=== PATIENT | female | born 1980 | race Hispanic/Latino ===

== ENCOUNTER 2017-10-22 03:09 | Emergency (ER) | payer OTHER, SELFPAY ==
[~2017-10-22 03:09] MED LIST: FURO40TA7 PO; INSREG SQ; INSU100V3 SQ; LEVO500T2 PO; LISI-613 PO; METF10004 PO; POTA-9 PO
[2017-10-22] MEDS ORDERED: SODIUM CHLORIDE 0.9% 1000ML 1,000 ML IV ONE (04:53)
[2017-10-22 04:57] LABS: BASOPHILS % (AUTO) 0.6 % (0.0-5.0); EOSINOPHILS % (AUTO) 1.7 % (0.0-8.0); HEMATOCRIT 31.8 % (36-48); LYMPHOCYTES % (AUTO) 20.8 % (21.0-51.0); MEAN CORPUSCULAR HEMOGLOBIN 29.9 pg (27.0-33.0); MEAN CORPUSCULAR HGB CONC 34.8 g/dL (32.0-36.0); MONOCYTES % (AUTO) 5.7 % (3.0-13.0); NEUTROPHILS % (AUTO) 71.2 % (40.0-77.0); PLATELET COUNT (AUTO) 291 K/uL (130-400); RED CELL DISTRIBUTION WIDTH 14.7 % (11.0-15.5); WHITE BLOOD COUNT (AUTO) 8.8 K/uL (4.8-10.8)
[2017-10-22 04:57] LABS: BILIRUBIN,URINE NEGATIVE (NEGATIVE); COLOR,URINE YELLOW (YELLOW); GLUCOSE, URINE (UA) 500 mg/dL (NEGATIVE); KETONES,URINE NEGATIVE (NEGATIVE); LEUKOCYTE ESTERASE ,URINE SMALL (NEGATIVE); NITRATE,URINE NEGATIVE (NEGATIVE); OCCULT BLOOD,URINE MODERATE (NEGATIVE); PH,URINE 6.5 (5.0-8.0); PROTEIN,URINE >=300 (NEGATIVE); UROBILINOGEN,URINE 0.2 mg/dL (0.2-1.0)
[2017-10-22 05:03] LABS: APPEARANCE,URINE HAZY (CLEAR)
[2017-10-22 05:04] LABS: CREATININE 1.2 mg/dL (0.5-1.5); POTASSIUM 4.1 mmol/L (3.5-5.1)
[2017-10-22 05:05] LABS: BACTERIA,URINE Few /HPF (None Seen)
[2017-10-22 05:09] LABS: ALBUMIN 2.3 g/dL (3.5-5.0); BILIRUBIN,TOTAL 0.1 mg/dL (0.2-1.0); TOTAL PROTEIN, SERUM 6.6 g/dL (6.0-8.3)
[2017-10-22] MEDS ORDERED: LABETALOL HCL 5 MG/ML 20ML VIAL IV ONE (06:05)
[2017-10-22] MEDS ORDERED: INSULIN HUMULIN R 100 UNIT/ML 3ML ONE (06:37)
== END 2017-10-22 06:47 | disposition home or self-care (01) ==
LOC: EDH 03:09
DX: E11.65 Type 2 diabetes mellitus with hyperglycemia (principal); R20.2 Paresthesia of skin; E78.5 Hyperlipidemia, unspecified; I11.0 Hypertensive heart disease with heart failure; I50.9 Heart failure, unspecified; Z79.4 Long term (current) use of insulin; Z98.890 Other specified postprocedural states
CPT/HCPCS: 36415; 70450; 80053; 81001; 81025; 82550; 82948 ×2; 84484; 85025; 93005; 96361; 96374; 96375; 99285; J1815; J3490; J7030

== ENCOUNTER 2018-01-25 15:56 | Emergency (ER) | payer OTHER, SELFPAY ==
[2018-01-25 16:44] LABS: BASOPHILS % (AUTO) 0.7 % (0.0-5.0); EOSINOPHILS % (AUTO) 1.4 % (0.0-8.0); HEMATOCRIT 24.3 % (36-48); LYMPHOCYTES % (AUTO) 25.1 % (21.0-51.0); MEAN CORPUSCULAR HEMOGLOBIN 29.3 pg (27.0-33.0); MEAN CORPUSCULAR HGB CONC 34.2 g/dL (32.0-36.0); MEAN CORPUSCULAR VOLUME 85.8 fL (79-99); MONOCYTES % (AUTO) 6.4 % (3.0-13.0); NEUTROPHILS % (AUTO) 66.4 % (40.0-77.0); PLATELET COUNT (AUTO) 218 K/uL (130-400); RED BLOOD CELL COUNT(AUTO) 2.83 MIL/uL (4.00-5.50); RED CELL DISTRIBUTION WIDTH 14.1 % (11.0-15.5); WHITE BLOOD COUNT (AUTO) 3.3 K/uL (4.8-10.8)
[2018-01-25 16:53] LABS: CREATININE 1.6 mg/dL (0.5-1.5); POTASSIUM 3.8 mmol/L (3.5-5.1)
[2018-01-25 16:54] LABS: INR 0.86 (0.85-1.15); PARTIAL THROMBOPLASTIN TIME 28.8 SEC (26.3-35.5); PROTHROMBIN TIME 9.1 SEC (9.6-11.6)
[2018-01-25 17:05] LABS: B-TYPE NATRIURETIC PEPTIDE 213 pg/mL (0-100)
[2018-01-25 17:07] LABS: ALBUMIN 2.1 g/dL (3.5-5.0); BILIRUBIN,TOTAL 0.2 mg/dL (0.2-1.0); CREATINE KINASE MB 1.2 ng/mL (0.5-3.6); TOTAL PROTEIN, SERUM 6.4 g/dL (6.0-8.3)
== END 2018-01-25 19:24 | disposition home or self-care (01) ==
LOC: EDH 15:56
DX: R55 Syncope and collapse (principal); F41.1 Generalized anxiety disorder; I11.0 Hypertensive heart disease with heart failure; I50.9 Heart failure, unspecified; E78.5 Hyperlipidemia, unspecified; Z98.890 Other specified postprocedural states
CPT/HCPCS: 36415; 71045; 80053; 82550; 82553; 83880; 84484; 85025; 85610; 85730; 93005; 94761

== ENCOUNTER 2018-06-17 10:09 | Emergency (ER) | payer SELFPAY ==
[~2018-06-17 10:09] MED LIST changes: +METF-446 PO; -METF10004 PO
[2018-06-17 11:05] LABS: APPEARANCE,URINE Cloudy (CLEAR); BILIRUBIN,URINE Negative (NEGATIVE); COLOR,URINE Yellow (YELLOW); GLUCOSE, URINE (UA) 250 mg/dL (NEGATIVE); KETONES,URINE Negative (NEGATIVE); LEUKOCYTE ESTERASE ,URINE Negative (NEGATIVE); NITRATE,URINE Negative (NEGATIVE); OCCULT BLOOD,URINE Moderate (NEGATIVE); PH,URINE 5.5 (5.0-8.0); PROTEIN,URINE >=1000 (NEGATIVE); UROBILINOGEN,URINE 0.2 mg/dL (0.2-1.0)
[2018-06-17 11:10] LABS: BASOPHILS % (AUTO) 0.4 % (0.0-5.0); EOSINOPHILS % (AUTO) 0.2 % (0.0-8.0); HEMATOCRIT 28.2 % (36-48); LYMPHOCYTES % (AUTO) 17.2 % (21.0-51.0); MEAN CORPUSCULAR HEMOGLOBIN 29.6 pg (27.0-33.0); MEAN CORPUSCULAR VOLUME 87.2 fL (79-99); NEUTROPHILS % (AUTO) 76.2 % (40.0-77.0); PLATELET COUNT (AUTO) 220 K/uL (130-400); RED BLOOD CELL COUNT(AUTO) 3.24 MIL/uL (4.00-5.50); RED CELL DISTRIBUTION WIDTH 14.2 % (11.0-15.5); WHITE BLOOD COUNT (AUTO) 3.7 K/uL (4.8-10.8)
[2018-06-17 11:15] LABS: HCG,QUAL RESULT NEGATIVE (NEGATIVE)
[2018-06-17 11:16] LABS: RAPID GROUP A STREP NEGATIVE (NEGATIVE)
[2018-06-17 11:16] LABS: BACTERIA,URINE Rare /HPF (None Seen); RBC,URINE 0-1 /HPF (0-1); WBC,URINE 0-1 /HPF (0-1)
[2018-06-17 11:17] LABS: MUCUS,URINE Rare LPF (None Seen); SQUAMOUS EPITHELIAL CELL,UR Few /HPF (0-2)
[2018-06-17 11:18] LABS: FINE GRANULAR CASTS,URINE 0-2 /LPF (None Seen)
[2018-06-17 11:19] LABS: CREATININE 2.3 mg/dL (0.5-1.5); POTASSIUM 3.8 mmol/L (3.5-5.1)
[2018-06-17 11:24] LABS: ALBUMIN 2.4 g/dL (3.5-5.0); BILIRUBIN,TOTAL 0.2 mg/dL (0.2-1.0)
[2018-06-17] MEDS ORDERED: ACETAMINOPHEN 325 MG TAB ONE (12:06)
== END 2018-06-17 12:28 | disposition home or self-care (01) ==
LOC: EDH 10:09
DX: J11.1 Influenza due to unidentified influenza virus with other respiratory manifestations (principal); E86.0 Dehydration; N28.9 Disorder of kidney and ureter, unspecified; E11.9 Type 2 diabetes mellitus without complications; E78.5 Hyperlipidemia, unspecified; I11.0 Hypertensive heart disease with heart failure; I50.9 Heart failure, unspecified
CPT/HCPCS: 36415; 71046; 80053; 81001; 81025; 83880; 85025; 85378; 87804; 87880

== ENCOUNTER → 2018-11-15 | Outpatient (CLI) | payer MEDICAID | END | disposition home or self-care (01) | LOC: RAH 15:20 | PROVIDERS: ATTEND Family Medicine | DX: N83.201 Unspecified ovarian cyst, right side (principal) | CPT/HCPCS: 74176 ==

== ENCOUNTER 2018-12-12 22:37 | Inpatient (IN) | payer MEDICAID | END 2018-12-14 21:13 | disposition home or self-care (01) | LOC: EDH 22:37 → EDHIP 22:38 → 2DH 12-13 01:45 | DX: R07.9 Chest pain, unspecified (principal); K85.90 Acute pancreatitis without necrosis or infection, unspecified; N18.4 Chronic kidney disease, stage 4 (severe); E11.65 Type 2 diabetes mellitus with hyperglycemia; Z79.4 Long term (current) use of insulin; N28.9 Disorder of kidney and ureter, unspecified; H34.10 Central retinal artery occlusion, unspecified eye ==

== ENCOUNTER 2019-03-13 18:20 | Emergency (ER) | payer MEDICAID ==
[~2019-03-13 18:20] MED LIST changes: +ASPI-891 PO; +ATOR40TA69 PO; +CARV6.25 PO; +CHOL100040 PO; +FERR-82 PO; +FOLI1TAB61 PO; +FURO40TA5 PO; -FURO40TA7 PO; +HUMLIS7525 SQ; -INSREG SQ; -INSU100V3 SQ; -LEVO500T2 PO; -METF-446 PO
[2019-03-13 19:09] LABS: APPEARANCE,URINE Clear (CLEAR); BILIRUBIN,URINE Negative (NEGATIVE); COLOR,URINE Yellow (YELLOW); GLUCOSE, URINE (UA) TRACE mg/dL (NEGATIVE); KETONES,URINE Negative (NEGATIVE); LEUKOCYTE ESTERASE ,URINE Trace (NEGATIVE); NITRATE,URINE Negative (NEGATIVE); OCCULT BLOOD,URINE Large (NEGATIVE); PROTEIN,URINE 300 mg/dL (NEGATIVE)
[2019-03-13 19:14] LABS: HCG,QUAL RESULT NEGATIVE (NEGATIVE)
[2019-03-13 19:17] LABS: AMPHET/METH SCREEN,URINE NEGATIVE (NEGATIVE); BARBITURATE SCREEN, URINE NEGATIVE (NEGATIVE); BENZODIAZEPINES SCREEN,URINE NEGATIVE (NEGATIVE); COCAINE SCREEN,URINE NEGATIVE (NEGATIVE); OPIATE SCREEN,URINE NEGATIVE (NEGATIVE); PHENCYCLIDINE SCREEN,URINE NEGATIVE (NEGATIVE)
[2019-03-13] MEDS ORDERED: PROCHLORPERAZINE EDISYLATE 10 MG/2 ML VIAL ONE (19:17)
[2019-03-13] MEDS ORDERED: TETRACAINE HCL 0.5% 4 ML OPHTH SOLN ONE (19:30)
[2019-03-13 19:31] LABS: BACTERIA,URINE Few /HPF (None Seen); RBC,URINE 26-50 /HPF (0-1); SQUAMOUS EPITHELIAL CELL,UR Few /HPF (0-2)
[2019-03-13 19:32] LABS: TRICHOMONAS,URINE Rare /LPF (None Seen)
[2019-03-13 19:35] LABS: BASOPHILS % (AUTO) 0.4 % (0.0-5.0); EOSINOPHILS % (AUTO) 1.4 % (0.0-8.0); HEMATOCRIT 26.2 % (36-48); LYMPHOCYTES % (AUTO) 10.9 % (21.0-51.0); MEAN CORPUSCULAR HEMOGLOBIN 31.2 pg (27.0-33.0); MEAN CORPUSCULAR HGB CONC 34.4 g/dL (32.0-36.0); MEAN CORPUSCULAR VOLUME 90.8 fL (79-99); MONOCYTES % (AUTO) 5.1 % (3.0-13.0); NEUTROPHILS % (AUTO) 82.2 % (40.0-77.0); PLATELET COUNT (AUTO) 244 K/uL (130-400); RED BLOOD CELL COUNT(AUTO) 2.88 MIL/uL (4.00-5.50); RED CELL DISTRIBUTION WIDTH 14.3 % (11.0-15.5); WHITE BLOOD COUNT (AUTO) 8.7 K/uL (4.8-10.8)
[2019-03-13] MEDS ORDERED: ONDANSETRON HCL 4 MG/2 ML VIAL ONE (19:39)
[2019-03-13 19:48] LABS: ALANINE AMINOTRANSFERASE 24 U/L (12-78); ALBUMIN 3.2 g/dL (3.5-5.0); ASPARTATE AMINOTRANSFERASE 20 U/L (10-37); BILIRUBIN,DIRECT < 0.1 mg/dL (0.0-0.3); BILIRUBIN,TOTAL 0.1 mg/dL (0.2-1.0); CARBON DIOXIDE 20 mmol/L (21-32); CHLORIDE 105 mmol/L (101-111); CREATINE KINASE, TOTAL 136 U/L (21-232); CREATININE 2.5 mg/dL (0.5-1.5); GLOMERULAR FILTR. RATE CALC 23 mL/min (>60); GLUCOSE,RANDOM 149 mg/dL (70-105); POTASSIUM 4.1 mmol/L (3.5-5.1); SODIUM SERUM 140 mmol/L (136-145); TOTAL PROTEIN, SERUM 7.1 g/dL (6.0-8.3)
[2019-03-13 19:50] LABS: UREA NITROGEN, BLOOD 86 mg/dL (7-18)
[2019-03-13 19:51] LABS: CANNABINOID SCREEN,URINE NEGATIVE (NEGATIVE)
[2019-03-13 20:00] LABS: B-TYPE NATRIURETIC PEPTIDE 48 pg/mL (0-100)
== END 2019-03-13 20:44 | disposition home or self-care (01) ==
LOC: EDH 18:20
DX: R51 Headache (principal); R53.1 Weakness; I11.0 Hypertensive heart disease with heart failure; I50.9 Heart failure, unspecified; E78.5 Hyperlipidemia, unspecified; E11.9 Type 2 diabetes mellitus without complications; Z98.890 Other specified postprocedural states
CPT/HCPCS: 36415; 70450; 80048; 80076; 80305; 81001; 81025; 82550; 82948; 83880; 84484; 85025; 93005; 96374; 99285; J0780; J2405

== ENCOUNTER 2019-05-19 22:40 | Emergency (ER) | payer MEDICAID ==
[2019-05-19 23:13] LABS: BASOPHILS % (AUTO) 0.7 % (0.0-5.0); EOSINOPHILS % (AUTO) 3.4 % (0.0-8.0); HEMATOCRIT 25.1 % (36-48); LYMPHOCYTES % (AUTO) 10.9 % (21.0-51.0); MEAN CORPUSCULAR HEMOGLOBIN 30.5 pg (27.0-33.0); MEAN CORPUSCULAR HGB CONC 33.4 g/dL (32.0-36.0); MEAN CORPUSCULAR VOLUME 91.4 fL (79-99); PLATELET COUNT (AUTO) 270 K/uL (130-400); RED BLOOD CELL COUNT(AUTO) 2.75 MIL/uL (4.00-5.50); RED CELL DISTRIBUTION WIDTH 14.3 % (11.0-15.5); WHITE BLOOD COUNT (AUTO) 9.4 K/uL (4.8-10.8)
[2019-05-19 23:25] LABS: CREATININE 2.6 mg/dL (0.5-1.5)
[2019-05-19 23:30] LABS: BILIRUBIN,TOTAL 0.4 mg/dL (0.2-1.0); TOTAL PROTEIN, SERUM 7.6 g/dL (6.0-8.3)
[2019-05-19] MEDS ORDERED: CLONIDINE HCL 0.1 MG TABLET ONE (23:48)
[2019-05-20] MEDS ORDERED: HYDRALAZINE HCL 20 MG/ML VIAL ONE (01:36)
== END 2019-05-20 02:12 | disposition home or self-care (01) ==
LOC: EDH 22:40
DX: I16.0 Hypertensive urgency (principal); I11.0 Hypertensive heart disease with heart failure; I50.9 Heart failure, unspecified; E11.9 Type 2 diabetes mellitus without complications; Z98.890 Other specified postprocedural states
CPT/HCPCS: 36415; 80053; 84484; 85025; 93005; 96374; 99285; J0360

== ENCOUNTER 2020-08-04 15:02 | Inpatient (IN) | payer MEDICAID ==
[~2020-08-04] VITALS: Ht 177.8 cm; Wt 111.6 kg
[~2020-08-04 15:02] MED LIST changes: +ACET325C6 PO; -FERR-82 PO; +FERS325 PO; +FLUT110HFA IH; +HYDR-4153 PO; +LEVA15HF3 IH; -LISI-613 PO; -POTA-9 PO; +SODI650T PO
[2020-08-04 15:38] LABS: BASOPHILS % (AUTO) 0.2 % (0.0-5.0); HEMATOCRIT 21.5 % (36-48); LYMPHOCYTES % (AUTO) 7.8 % (21.0-51.0); MEAN CORPUSCULAR HEMOGLOBIN 29.4 pg (27.0-33.0); MEAN CORPUSCULAR HGB CONC 31.2 g/dL (32.0-36.0); MEAN CORPUSCULAR VOLUME 94.3 fL (79-99); MONOCYTES % (AUTO) 4.5 % (3.0-13.0); NEUTROPHILS % (AUTO) 85.3 % (40.0-77.0); PLATELET COUNT (AUTO) 217 K/uL (130-400); RED BLOOD CELL COUNT(AUTO) 2.28 MIL/uL (4.00-5.50); RED CELL DISTRIBUTION WIDTH 16.8 % (11.0-15.5); WHITE BLOOD COUNT (AUTO) 8.5 K/uL (4.8-10.8)
[2020-08-04 15:47] LABS: INR 0.99 (0.85-1.15); PARTIAL THROMBOPLASTIN TIME 28.8 SEC (26.3-35.5); PROTHROMBIN TIME 10.7 SEC (9.6-11.6)
[2020-08-04 15:51] LABS: ALBUMIN 3.1 g/dL (3.5-5.0); BILIRUBIN,TOTAL 0.5 mg/dL (0.2-1.0); POTASSIUM 3.7 mmol/L (3.5-5.1); TOTAL PROTEIN, SERUM 7.9 g/dL (6.0-8.3)
[2020-08-04] MEDS ORDERED: DEXTROSE 50%-WATER 50 ML DISP.SYRIN IV ONE (15:56)
[2020-08-04] MEDS ORDERED: FUROSEMIDE 10 MG/ML 10ML VIAL IVP SCH (17:00)
[2020-08-04] MEDS ORDERED: ACETAMINOPHEN 325 MG TAB PO PRN ×2 (17:00)
[2020-08-04] MEDS ORDERED: ONDANSETRON HCL 4 MG/2 ML VIAL IVP PRN (17:00)
[2020-08-04] MEDS ORDERED: DEXTROSE 50%-WATER 50 ML DISP.SYRIN IV PRN (17:15)
[2020-08-04] MEDS ORDERED: GLUCAGON 1MG KIT 1 MG ML IM PRN (17:15)
[2020-08-04] MEDS ORDERED: FUROSEMIDE 10 MG/ML 2ML VIAL ONE (17:43)
[2020-08-04 18:00] LABS: % IRON SATURATION 34.8 % (22-44)
[2020-08-04 18:54] LABS: APPEARANCE,URINE Clear (CLEAR); BILIRUBIN,URINE Negative (NEGATIVE); COLOR,URINE Yellow (YELLOW); GLUCOSE, URINE (UA) Negative (NEGATIVE); KETONES,URINE Negative (NEGATIVE); LEUKOCYTE ESTERASE ,URINE Trace (NEGATIVE); NITRATE,URINE Negative (NEGATIVE); OCCULT BLOOD,URINE Trace (NEGATIVE); PROTEIN,URINE 300 mg/dL (NEGATIVE)
[2020-08-04 19:13] LABS: PROTEIN,URINE RANDOM 292.8 mg/dL (0-11.9)
[2020-08-04 19:23] LABS: BACTERIA,URINE Few /HPF (None Seen); RBC,URINE None Seen /HPF (0-1); SQUAMOUS EPITHELIAL CELL,UR 0-2 /HPF (0-2)
[2020-08-04] MEDS ORDERED: SODIUM CHLORIDE 0.9% 250 ML IV ONE (20:05)
[2020-08-04 20:28] VITALS: BP 148/80
[2020-08-04] MEDS: INSULIN HUMULIN R 100 UNIT/ML 3ML SQ SCH (21:00)
[2020-08-04 21:05] VITALS: BP 167/75
[2020-08-04 21:10] VITALS: BP 172/83
[2020-08-04 21:25] VITALS: BP 171/81
[2020-08-04] MEDS: SODIUM BICARBONATE 650 MG TAB PO SCH (22:17)
[2020-08-04] MEDS ORDERED: CARV25TA PO (23:05)
[2020-08-04] MEDS ORDERED: FOLI1TAB61 PO (23:08)
[2020-08-04] MEDS ORDERED: ISOS30TA6 PO (23:08)
[2020-08-04] MEDS ORDERED: INSU100I54 SQ ×2 (23:08→23:29)
[2020-08-04] MEDS ORDERED: CEPH500C2 PO (23:29)
[2020-08-04] MEDS ORDERED: ATOR40TA69 PO (23:29)
[2020-08-04] MEDS ORDERED: NIFE30TA98 PO (23:29)
[2020-08-04] MEDS ORDERED: SODI650T PO (23:29)
[2020-08-04] MEDS ORDERED: FURO80TA3 PO (23:29)
[2020-08-05] VITALS (7 sets, daily range): BP systolic 153–183; BP diastolic 79–99
[2020-08-05] MEDS ORDERED: METOPROLOL TARTRATE 1 MG/ML 5ML VIAL IV SCH ×2 (00:30→00:45)
[2020-08-05] MEDS ORDERED: METOPROLOL TARTRATE 1 MG/ML 5ML VIAL IV ONE (00:34)
--- NOTE | 2020-08-05 02:26 | NUR ---
STAT H AND H SPOKE WITH BETTINA, FOLLOWED UP THE STAT ORDER FOR H AND H S/P 1 UNIT BLOOD TRANSFUSION PRBC. BETTINA SAID SHE WILL SEND SOMEONE TO DRAW BLOOD. PATIENT DENIED ANY DYSPNEA, CHEST PAIN, ITCHINESS, NO RASHES NOTED, NO UNTOWARD TRANSFUSION REACTION NOTED.
[2020-08-05 02:43] LABS: HEMATOCRIT 23.1 % (36-48); MEAN CORPUSCULAR HGB CONC 32.5 g/dL (32.0-36.0); MEAN CORPUSCULAR VOLUME 92.4 fL (79-99); RED BLOOD CELL COUNT(AUTO) 2.5 MIL/uL (4.00-5.50); RED CELL DISTRIBUTION WIDTH 17.7 % (11.0-15.5); WHITE BLOOD COUNT (AUTO) 8.6 K/uL (4.8-10.8)
[2020-08-05 02:58] LABS: MAGNESIUM 2.3 mg/dL (1.80-2.40); PHOSPHORUS 6.4 mg/dL (2.5-4.9); POTASSIUM 3.9 mmol/L (3.5-5.1)
[2020-08-05] MEDS: INSULIN HUMULIN R 100 UNIT/ML 3ML SQ SCH ×4 (06:07→21:00)
[2020-08-05] MEDS: FAMOTIDINE 20MG TAB 20 MG TAB PO SCH (09:23)
[2020-08-05] MEDS: NIFEDIPINE ER 30 MG TAB PO SCH (09:23)
[2020-08-05] MEDS: SODIUM BICARBONATE 650 MG TAB PO SCH ×2 (09:23→20:23)
[2020-08-05] MEDS: ISOSORBIDE MONO 30MG TAB SR PO SCH (09:23)
[2020-08-05] MEDS: FUROSEMIDE 10 MG/ML 2ML VIAL IVP SCH (09:28)
[2020-08-05] MEDS ORDERED: CARVEDILOL 12.5 MG TABLET PO SCH (11:30)
--- NOTE | 2020-08-05 11:41 | NUR ---
MORAIMA STARR Spoke with patient on phone via number listed. As per patient, she lives alone with her children. She needs assistance being dressed, and does have a provider service at 26 hours/week through [facility] in [place]. The only DME reported is a CPAP machine. No other services or DME reported. She feel safe to go home at discharge. Her mother is to assist with transport at discharge. CM to follow up. Addendum: 08/05/20 at 1146 by DARLENE LAST Amended: Links added.
[2020-08-05] MEDS: CARVEDILOL 12.5 MG TABLET PO SCH ×2 (13:09→20:24)
[2020-08-05] MEDS: ATORVASTATIN CALCIUM 40 MG TABLET PO SCH (20:23)
[2020-08-05] MEDS: CEPHALEXIN 500 MG CAPSULE PO SCH (20:24)
[2020-08-06] VITALS (7 sets, daily range): BP systolic 68–182; BP diastolic 82–100
[2020-08-06 05:07] LABS: HEMOGLOBIN A1C 7.2 % (4.0-6.0)
[2020-08-06] MEDS: INSULIN HUMULIN R 100 UNIT/ML 3ML SQ SCH ×4 (05:43→22:34)
[2020-08-06 06:03] LABS: BASOPHILS % (AUTO) 0.2 % (0.0-5.0); EOSINOPHILS % (AUTO) 2.3 % (0.0-8.0); HEMATOCRIT 21.8 % (36-48); LYMPHOCYTES % (AUTO) 7.4 % (21.0-51.0); MEAN CORPUSCULAR HEMOGLOBIN 29.3 pg (27.0-33.0); MEAN CORPUSCULAR HGB CONC 32.6 g/dL (32.0-36.0); MEAN CORPUSCULAR VOLUME 90.1 fL (79-99); MONOCYTES % (AUTO) 3.8 % (3.0-13.0); NEUTROPHILS % (AUTO) 85.9 % (40.0-77.0); PLATELET COUNT (AUTO) 212 K/uL (130-400); RED BLOOD CELL COUNT(AUTO) 2.42 MIL/uL (4.00-5.50); RED CELL DISTRIBUTION WIDTH 17.2 % (11.0-15.5); WHITE BLOOD COUNT (AUTO) 8.3 K/uL (4.8-10.8)
[2020-08-06 06:21] LABS: CREATININE 4.9 mg/dL (0.5-1.5); POTASSIUM 3.7 mmol/L (3.5-5.1)
[2020-08-06] MEDS: FAMOTIDINE 20MG TAB 20 MG TAB PO SCH (09:22)
[2020-08-06] MEDS: Vitamin B Complex/Vit C/Folic Acid PO SCH (09:22)
[2020-08-06] MEDS: SODIUM BICARBONATE 650 MG TAB PO SCH ×2 (09:23→20:31)
[2020-08-06] MEDS: NIFEDIPINE ER 30 MG TAB PO SCH (09:23)
[2020-08-06] MEDS: ISOSORBIDE MONO 30MG TAB SR PO SCH (09:23)
[2020-08-06] MEDS: CEPHALEXIN 500 MG CAPSULE PO SCH ×2 (09:24→20:31)
[2020-08-06] MEDS: CARVEDILOL 12.5 MG TABLET PO SCH ×2 (09:37→20:31)
[2020-08-06] MEDS: FUROSEMIDE 10 MG/ML 2ML VIAL IVP SCH (09:37)
[2020-08-06] MEDS ORDERED: EPOETIN ALFA 10,000 UNIT/ML VIAL SQ SCH (16:15)
[2020-08-06] MEDS ORDERED: COMPOUND IV MISC 1 EACH IVSOLN MISC PRN (16:30)
[2020-08-06] MEDS: IRON SUCROSE COMPLEX 300 MG in SODIUM CHLORIDE 0.9% 50 ML IV SCH (17:10)
[2020-08-06] MEDS: ATORVASTATIN CALCIUM 40 MG TABLET PO SCH (20:31)
[2020-08-06] MEDS: HYDRALAZINE HCL 25 MG TABLET PO SCH (23:00)
[2020-08-07] VITALS (7 sets, daily range): BP systolic 161–178; BP diastolic 68–97
[2020-08-07] MEDS: INSULIN HUMULIN R 100 UNIT/ML 3ML SQ SCH ×4 (05:29→20:42)
[2020-08-07] MEDS: FUROSEMIDE 10 MG/ML 2ML VIAL IVP SCH (05:39)
[2020-08-07 06:22] LABS: BASOPHILS % (AUTO) 0.3 % (0.0-5.0); EOSINOPHILS % (AUTO) 2.3 % (0.0-8.0); HEMATOCRIT 22.5 % (36-48); MEAN CORPUSCULAR HEMOGLOBIN 29.5 pg (27.0-33.0); MEAN CORPUSCULAR HGB CONC 31.6 g/dL (32.0-36.0); MEAN CORPUSCULAR VOLUME 93.4 fL (79-99); MONOCYTES % (AUTO) 3.6 % (3.0-13.0); NEUTROPHILS % (AUTO) 86.4 % (40.0-77.0); PLATELET COUNT (AUTO) 206 K/uL (130-400); RED BLOOD CELL COUNT(AUTO) 2.41 MIL/uL (4.00-5.50); RED CELL DISTRIBUTION WIDTH 16.6 % (11.0-15.5); WHITE BLOOD COUNT (AUTO) 7.7 K/uL (4.8-10.8)
[2020-08-07 06:46] LABS: CREATININE 4.7 mg/dL (0.5-1.5); PHOSPHORUS 5.5 mg/dL (2.5-4.9); POTASSIUM 3.8 mmol/L (3.5-5.1)
[2020-08-07] MEDS: IRON SUCROSE COMPLEX 300 MG in SODIUM CHLORIDE 0.9% 50 ML IV SCH (09:00)
[2020-08-07] MEDS: CARVEDILOL 12.5 MG TABLET PO SCH ×2 (10:10→20:11)
[2020-08-07] MEDS: NIFEDIPINE ER 30 MG TAB PO SCH (10:10)
[2020-08-07] MEDS: ISOSORBIDE MONO 30MG TAB SR PO SCH (10:10)
[2020-08-07] MEDS: HYDRALAZINE HCL 25 MG TABLET PO SCH ×3 (10:10→20:21)
[2020-08-07] MEDS: FAMOTIDINE 20MG TAB 20 MG TAB PO SCH (10:10)
[2020-08-07] MEDS: CEPHALEXIN 500 MG CAPSULE PO SCH ×2 (10:10→20:11)
[2020-08-07] MEDS: Vitamin B Complex/Vit C/Folic Acid PO SCH (10:11)
[2020-08-07] MEDS: SODIUM BICARBONATE 650 MG TAB PO SCH ×2 (10:11→20:11)
[2020-08-07] MEDS: ATORVASTATIN CALCIUM 40 MG TABLET PO SCH (20:11)
[2020-08-07] MEDS: INSULIN GLARGINE 100 UNITS/ML 10 ML VIAL SQ SCH (21:03)
[2020-08-08 03:55] VITALS: BP 164/82
[2020-08-08] MEDS: INSULIN HUMULIN R 100 UNIT/ML 3ML SQ SCH ×4 (05:54→20:15)
[2020-08-08 05:58] LABS: HEMATOCRIT 24.1 % (36-48); MEAN CORPUSCULAR HGB CONC 31.5 g/dL (32.0-36.0); RED BLOOD CELL COUNT(AUTO) 2.62 MIL/uL (4.00-5.50); RED CELL DISTRIBUTION WIDTH 16.6 % (11.0-15.5)
[2020-08-08 06:30] LABS: CREATININE 4.9 mg/dL (0.5-1.5); POTASSIUM 3.7 mmol/L (3.5-5.1)
[2020-08-08 08:26] VITALS: BP 166/96
[2020-08-08] MEDS: FUROSEMIDE 10 MG/ML 2ML VIAL IVP SCH (09:37)
[2020-08-08] MEDS: NIFEDIPINE ER 30 MG TAB PO SCH (09:37)
[2020-08-08] MEDS: FAMOTIDINE 20MG TAB 20 MG TAB PO SCH (09:37)
[2020-08-08] MEDS: HYDRALAZINE HCL 25 MG TABLET PO SCH ×3 (09:37→20:23)
[2020-08-08] MEDS: CEPHALEXIN 500 MG CAPSULE PO SCH ×2 (09:37→20:14)
[2020-08-08] MEDS: ISOSORBIDE MONO 30MG TAB SR PO SCH (09:37)
[2020-08-08] MEDS: Vitamin B Complex/Vit C/Folic Acid PO SCH (09:37)
[2020-08-08] MEDS: SODIUM BICARBONATE 650 MG TAB PO SCH ×2 (09:37→20:14)
[2020-08-08] MEDS: CARVEDILOL 12.5 MG TABLET PO SCH ×2 (09:38→20:14)
[2020-08-08] MEDS: IRON SUCROSE COMPLEX 300 MG in SODIUM CHLORIDE 0.9% 50 ML IV SCH (09:38)
[2020-08-08 12:43] VITALS: BP 161/87
[2020-08-08 16:00] VITALS: BP 167/96
[2020-08-08 20:00] VITALS: BP 164/83
[2020-08-08] MEDS: ATORVASTATIN CALCIUM 40 MG TABLET PO SCH (20:14)
[2020-08-08] MEDS: INSULIN GLARGINE 100 UNITS/ML 10 ML VIAL SQ SCH (20:16)
[2020-08-08] MEDS: FUROSEMIDE 80 MG TABLET PO SCH (20:23)
[2020-08-09] VITALS: BP 162/89
[2020-08-09 04:00] VITALS: BP 162/91
[2020-08-09 05:58] LABS: HEMATOCRIT 23.9 % (36-48)
[2020-08-09 06:05] LABS: CREATININE 4.8 mg/dL (0.5-1.5); POTASSIUM 3.8 mmol/L (3.5-5.1)
[2020-08-09] MEDS: INSULIN HUMULIN R 100 UNIT/ML 3ML SQ SCH ×4 (06:33→20:14)
[2020-08-09 08:00] VITALS: BP 186/95
[2020-08-09] MEDS: IRON SUCROSE COMPLEX 300 MG in SODIUM CHLORIDE 0.9% 50 ML IV SCH (08:23)
[2020-08-09] MEDS: CARVEDILOL 12.5 MG TABLET PO SCH ×2 (09:06→20:09)
[2020-08-09] MEDS: SODIUM BICARBONATE 650 MG TAB PO SCH ×2 (09:07→20:09)
[2020-08-09] MEDS: FUROSEMIDE 80 MG TABLET PO SCH ×2 (09:07→16:46)
[2020-08-09] MEDS: Vitamin B Complex/Vit C/Folic Acid PO SCH (09:07)
[2020-08-09] MEDS: CEPHALEXIN 500 MG CAPSULE PO SCH ×2 (09:07→20:09)
[2020-08-09] MEDS: HYDRALAZINE HCL 25 MG TABLET PO SCH ×3 (09:07→20:09)
[2020-08-09] MEDS: NIFEDIPINE ER 30 MG TAB PO SCH (09:07)
[2020-08-09] MEDS: ISOSORBIDE MONO 30MG TAB SR PO SCH (09:07)
[2020-08-09] MEDS: FAMOTIDINE 20MG TAB 20 MG TAB PO SCH (09:07)
[2020-08-09 11:00] VITALS: BP 184/98
[2020-08-09 16:00] VITALS: BP 182/96
[2020-08-09 20:00] VITALS: BP 174/87
[2020-08-09] MEDS: ATORVASTATIN CALCIUM 40 MG TABLET PO SCH (20:12)
[2020-08-09] MEDS: INSULIN GLARGINE 100 UNITS/ML 10 ML VIAL SQ SCH (20:13)
[2020-08-10] VITALS (7 sets, daily range): BP systolic 126–186; BP diastolic 57–93
--- NOTE | 2020-08-10 04:00 | NUR ---
ROUNDS PATIENT RESTING IN BED AT THIS TIME, MEDICATED PER MARS WITH TYLENOL 650MG PO FOR COMPLAINTS OF A HEADACHE AT 0300. NO COMPLAINTS OF PAIN VOICED AT THIS TIME. VITALS STABLE. AFEBRILE. NO SIGNS OF DISTRESS NOTED. HOB ELEVATED. CALL LIGHT WITHIN REACH. WILL CONTINUE TO BE OBSERVED. Addendum: 08/10/20 at 0637 by AUREA GALVEZ RN RN Amended: Links added.
[2020-08-10] MEDS: INSULIN HUMULIN R 100 UNIT/ML 3ML SQ SCH ×4 (06:37→20:22)
[2020-08-10 06:53] LABS: MAGNESIUM 2.4 mg/dL (1.80-2.40); POTASSIUM 3.7 mmol/L (3.5-5.1)
[2020-08-10] MEDS: ISOSORBIDE MONO 30MG TAB SR PO SCH (09:54)
[2020-08-10] MEDS: IRON SUCROSE COMPLEX 300 MG in SODIUM CHLORIDE 0.9% 50 ML IV SCH (09:54)
[2020-08-10] MEDS: FUROSEMIDE 80 MG TABLET PO SCH ×2 (09:55→18:22)
[2020-08-10] MEDS: NIFEDIPINE ER 30 MG TAB PO SCH (09:55)
[2020-08-10] MEDS: SODIUM BICARBONATE 650 MG TAB PO SCH ×2 (09:55→20:21)
[2020-08-10] MEDS: CARVEDILOL 12.5 MG TABLET PO SCH ×2 (09:55→20:21)
[2020-08-10] MEDS: HYDRALAZINE HCL 25 MG TABLET PO SCH ×3 (09:55→20:20)
[2020-08-10] MEDS: CEPHALEXIN 500 MG CAPSULE PO SCH ×2 (09:56→20:21)
[2020-08-10] MEDS: FAMOTIDINE 20MG TAB 20 MG TAB PO SCH (09:56)
[2020-08-10] MEDS: Vitamin B Complex/Vit C/Folic Acid PO SCH (09:56)
[2020-08-10] MEDS ORDERED: MINOXIDIL 2.5 MG TAB PO SCH (10:00)
[2020-08-10] MEDS ORDERED: NIFEDIPINE ER 30 MG TAB PO SCH (10:00)
[2020-08-10] MEDS ORDERED: HYDRALAZINE HCL 25 MG TABLET PO SCH (10:15)
[2020-08-10] MEDS ORDERED: ISOSORBIDE MONO 30MG TAB SR PO SCH (10:15)
--- NOTE | 2020-08-10 13:55 | NUR ---
NUTRITION EDUCATION RD provided Renal, Anemia, Diabetes nutrition education. Pt with visual impairment, mother cooks food at home. RD discussed nutrition recommendations and detailed foods recommended and not recommended. Pt reviewed foods normally eaten at home, RD provided recommendations. All Pt questions answered. Pt verbalized understanding. RD encouraged Pt to notify as additional questions or concerns arise. Pt verbalized understanding. Addendum: 08/10/20 at [address] RD Amended: Links added.
[2020-08-10] MEDS: ATORVASTATIN CALCIUM 40 MG TABLET PO SCH (20:21)
[2020-08-10] MEDS: INSULIN GLARGINE 100 UNITS/ML 10 ML VIAL SQ SCH (20:30)
[2020-08-11 04:42] VITALS: BP 121/59
[2020-08-11 05:34] LABS: HEMATOCRIT 22.3 % (36-48); MEAN CORPUSCULAR HEMOGLOBIN 29.8 pg (27.0-33.0); MEAN CORPUSCULAR HGB CONC 31.8 g/dL (32.0-36.0); MEAN CORPUSCULAR VOLUME 93.7 fL (79-99); RED BLOOD CELL COUNT(AUTO) 2.38 MIL/uL (4.00-5.50); RED CELL DISTRIBUTION WIDTH 16.7 % (11.0-15.5); WHITE BLOOD COUNT (AUTO) 7.8 K/uL (4.8-10.8)
[2020-08-11 05:58] LABS: CREATININE 5.1 mg/dL (0.5-1.5); MAGNESIUM 2.2 mg/dL (1.80-2.40); PHOSPHORUS 4.9 mg/dL (2.5-4.9)
[2020-08-11] MEDS: INSULIN HUMULIN R 100 UNIT/ML 3ML SQ SCH ×2 (06:18→11:30)
[2020-08-11 07:41] LABS: POTASSIUM 3.7 mmol/L (3.5-5.1)
[2020-08-11 09:17] VITALS: BP 141/75
[2020-08-11] MEDS: IRON SUCROSE COMPLEX 300 MG in SODIUM CHLORIDE 0.9% 50 ML IV SCH (09:22)
[2020-08-11] MEDS: SODIUM BICARBONATE 650 MG TAB PO SCH (09:23)
[2020-08-11] MEDS: CARVEDILOL 12.5 MG TABLET PO SCH (09:23)
[2020-08-11] MEDS: FAMOTIDINE 20MG TAB 20 MG TAB PO SCH (09:23)
[2020-08-11] MEDS: Vitamin B Complex/Vit C/Folic Acid PO SCH (09:24)
[2020-08-11] MEDS: ISOSORBIDE MONO 30MG TAB SR PO SCH (09:24)
[2020-08-11] MEDS: CEPHALEXIN 500 MG CAPSULE PO SCH (09:25)
[2020-08-11] MEDS: HYDRALAZINE HCL 25 MG TABLET PO SCH (09:25)
[2020-08-11] MEDS: FUROSEMIDE 80 MG TABLET PO SCH (09:25)
[2020-08-11] MEDS: NIFEDIPINE ER 30 MG TAB PO SCH (09:28)
[2020-08-11 12:32] VITALS: BP 138/70
--- NOTE | 2020-08-11 14:40 | NUR ---
DISCHARGED USING TEACH BACK, VERBALIZES UNDERSTANDING OF ALL INST. GIVEN. DR. LEMUS TALKED TO HER REGARDING INSULIN DOSES AND WILL VISIT WITH HIM LATER. WILL ALSO GO TO SEE DR. CHINCHILLA AND DISCUSS DIALYSIS AT THAT TIME BUT S NOT READY FOR THAT NOW. HAD RX IN HAND FOR HYDRAZINE, COREG AND NIFEDIPINE. 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 HER MOTHER ASST. WITH HER ADL
--- NOTE | 2020-08-13 10:40 | NUR ---
Transitional Care - Post Discharge Note Person whom answered phone call stated the patient was unavailable. Left message asking for patient to return my call at her earliest convenience. Addendum: 08/13/20 at 1043 by DARLENE LAST Amended: Links added.
[2020-08-16] MEDS ORDERED: EPOETIN ALFA 10,000 UNIT/ML VIAL SQ SCH (09:00)
== END 2020-08-11 14:55 | disposition home or self-care (01) | DRG 194 ==
LOC: EDH 15:02 → OBSVTOIN 15:03 → EDHIP 15:03 → 4AH 20:17
PROVIDERS: ADMIT Internal Medicine; ATTEND Internal Medicine
PROC: 30233N1 Transfusion of Nonautologous Red Blood Cells into Peripheral Vein, Percutaneous Approach (ICD-10-PCS; principal; 2020-08-04)
DX: I13.2 Hypertensive heart and chronic kidney disease with heart failure and with stage 5 chronic kidney disease, or end stage renal disease (principal); N17.9 Acute kidney failure, unspecified; D63.8 Anemia in other chronic diseases classified elsewhere; E87.70 Fluid overload, unspecified; N18.5 Chronic kidney disease, stage 5; E11.22 Type 2 diabetes mellitus with diabetic chronic kidney disease; E11.649 Type 2 diabetes mellitus with hypoglycemia without coma; E11.319 Type 2 diabetes mellitus with unspecified diabetic retinopathy without macular edema; I50.32 Chronic diastolic (congestive) heart failure; E11.42 Type 2 diabetes mellitus with diabetic polyneuropathy; E11.51 Type 2 diabetes mellitus with diabetic peripheral angiopathy without gangrene; E87.2 Acidosis; E66.01 Morbid (severe) obesity due to excess calories; Z20.828 Contact with and (suspected) exposure to other viral communicable diseases; H54.8 Legal blindness, as defined in USA; E78.5 Hyperlipidemia, unspecified; E11.65 Type 2 diabetes mellitus with hyperglycemia; Z68.35 Body mass index [BMI] 35.0-35.9, adult; Z91.11 Patient's noncompliance with dietary regimen; Z79.4 Long term (current) use of insulin; Z83.3 Family history of diabetes mellitus; Z82.3 Family history of stroke; Z82.49 Family history of ischemic heart disease and other diseases of the circulatory system
CPT/HCPCS: 36415; 71045; 76770; 80048; 80053; 81001; 82270; 82570; 82728; 82948; 83036; 83540; 83550; 83735; 83880; 84100; 84156; 84300; 84540; 84550; 85014; 85018; 85025; 85027; 85610; 85730; 86850; 86900; 86901; 86922; 87426; 93005; 99291; G0378; J0885; J1756; J1815; J1940; J3490; J7050; J7070; P9016; U0003

== ENCOUNTER 2021-01-15 15:53 | Inpatient (IN) | payer MEDICAID ==
[~2021-01-15] VITALS: Ht 177.8 cm; Wt 107.9 kg
[~2021-01-15 15:53] MED LIST changes: -ASPI-891 PO; -CARV6.25 PO; +CEPH500C2 PO; -CHOL100040 PO; -FLUT110HFA IH; -FURO40TA5 PO; +FURO80TA3 PO; -HUMLIS7525 SQ; -HYDR-4153 PO; +ISOS30TA92 PO
[2021-01-15 16:56] LABS: BASOPHILS % (AUTO) 0.2 % (0.0-5.0); EOSINOPHILS % (AUTO) 1.9 % (0.0-8.0); MEAN CORPUSCULAR HEMOGLOBIN 29.7 pg (27.0-33.0); MEAN CORPUSCULAR HGB CONC 32.3 g/dL (32.0-36.0); MEAN CORPUSCULAR VOLUME 91.9 fL (79-99); MONOCYTES % (AUTO) 4.2 % (3.0-13.0); NEUTROPHILS % (AUTO) 87.2 % (40.0-77.0); PLATELET COUNT (AUTO) 175 K/uL (130-400); RED BLOOD CELL COUNT(AUTO) 1.72 MIL/uL (4.00-5.50); RED CELL DISTRIBUTION WIDTH 14.8 % (11.0-15.5); WHITE BLOOD COUNT (AUTO) 9.1 K/uL (4.8-10.8)
[2021-01-15 17:07] LABS: HEMATOCRIT 15.8 % (36-48); INR 1.03 (0.85-1.15); PROTHROMBIN TIME 11.2 SEC (9.6-11.6)
[2021-01-15 17:09] LABS: PARTIAL THROMBOPLASTIN TIME 26.8 SEC (26.3-35.5)
[2021-01-15 17:15] LABS: ALBUMIN 2.8 g/dL (3.5-5.0); BILIRUBIN,TOTAL 0.3 mg/dL (0.2-1.0); CREATININE 6.9 mg/dL (0.5-1.5); POTASSIUM 4.2 mmol/L (3.5-5.1); TOTAL PROTEIN, SERUM 6.9 g/dL (6.0-8.3)
[2021-01-15] MEDS ORDERED: ACETAMINOPHEN 325 MG TAB PO PRN (18:15)
[2021-01-15] MEDS ORDERED: ZOLPIDEM TARTRATE 5 MG TAB PO PRN (18:15)
[2021-01-15] MEDS ORDERED: MAG HYDROX/AL HYDROX/SIMETH ES 30 ML SUSP UDCUP PO PRN (18:15)
[2021-01-15] MEDS ORDERED: LACTULOSE 20 GM/30 ML UDCUP PO PRN (18:15)
[2021-01-15] MEDS ORDERED: NITROGLYCERIN 0.4 MG SL TAB SL PRN (18:15)
[2021-01-15] MEDS ORDERED: GUAIFENESIN-DM 200/20 MG 10 ML PO PRN (18:15)
[2021-01-15 21:36] LABS: APPEARANCE,URINE Clear (CLEAR); BILIRUBIN,URINE Negative (NEGATIVE); COLOR,URINE Orange (YELLOW); GLUCOSE, URINE (UA) Negative (NEGATIVE); KETONES,URINE Negative (NEGATIVE); LEUKOCYTE ESTERASE ,URINE Moderate (NEGATIVE); NITRATE,URINE Negative (NEGATIVE); OCCULT BLOOD,URINE Large (NEGATIVE); PH,URINE 7.5 (5.0-8.0); PROTEIN,URINE >=1000 mg/dL (NEGATIVE)
[2021-01-15 21:53] LABS: BACTERIA,URINE Few /HPF (None Seen); RBC,URINE 51-100 /HPF (0-1); SQUAMOUS EPITHELIAL CELL,UR Few /HPF (0-2)
[2021-01-15 21:54] LABS: MUCUS,URINE Few LPF (None Seen)
[2021-01-15 22:35] VITALS: BP 126/73
[2021-01-15] MEDS: PANTOPRAZOLE 40 MG/VIAL IVP SCH (23:21)
[2021-01-16 03:53] VITALS: BP 162/73
[2021-01-16] MEDS ORDERED: DEXTROSE 50%-WATER 50 ML DISP.SYRIN IV PRN (05:30)
[2021-01-16] MEDS ORDERED: GLUCAGON 1MG KIT 1 MG ML IM PRN (05:30)
[2021-01-16] MEDS ORDERED: NIFE60TA81 PO (06:07)
[2021-01-16] MEDS ORDERED: ASCO100031 PO (06:07)
[2021-01-16] MEDS ORDERED: FOLI1TAB85 PO (06:07)
[2021-01-16] MEDS ORDERED: CHOL100046 PO (06:07)
[2021-01-16] MEDS ORDERED: ASPI-1005 PO (06:07)
[2021-01-16] MEDS ORDERED: FERR-72 PO (06:07)
[2021-01-16] MEDS ORDERED: CARV12.511 PO (06:07)
[2021-01-16] MEDS ORDERED: HYDR-4154 PO (06:07)
[2021-01-16 06:23] LABS: BASOPHILS % (AUTO) 0.2 % (0.0-5.0); LYMPHOCYTES % (AUTO) 7.4 % (21.0-51.0); MEAN CORPUSCULAR HEMOGLOBIN 29.5 pg (27.0-33.0); MEAN CORPUSCULAR HGB CONC 31.8 g/dL (32.0-36.0); MEAN CORPUSCULAR VOLUME 92.9 fL (79-99); MONOCYTES % (AUTO) 3.9 % (3.0-13.0); PLATELET COUNT (AUTO) 158 K/uL (130-400); RED BLOOD CELL COUNT(AUTO) 1.83 MIL/uL (4.00-5.50); WHITE BLOOD COUNT (AUTO) 8.7 K/uL (4.8-10.8)
[2021-01-16 06:37] LABS: ALBUMIN 2.7 g/dL (3.5-5.0); CREATININE 6.6 mg/dL (0.5-1.5); POTASSIUM 4.2 mmol/L (3.5-5.1)
[2021-01-16 06:39] LABS: BILIRUBIN,TOTAL 0.4 mg/dL (0.2-1.0); TOTAL PROTEIN, SERUM 6.4 g/dL (6.0-8.3)
[2021-01-16] MEDS: INSULIN HUMULIN R 100 UNIT/ML 3ML SQ SCH ×4 (07:30→20:53)
[2021-01-16 08:00] VITALS: BP 142/78
[2021-01-16] MEDS: CARVEDILOL 12.5 MG TABLET PO SCH ×2 (08:00→20:47)
[2021-01-16] MEDS: FERROUS SULFATE 325 MG TABLET.DR PO SCH ×3 (09:00→20:47)
[2021-01-16] MEDS: ASPIRIN 81MG TAB.CHEW PO SCH (09:00)
[2021-01-16] MEDS: HYDRALAZINE HCL 25 MG TABLET PO SCH ×3 (09:00→20:47)
[2021-01-16] MEDS: PANTOPRAZOLE 40 MG/VIAL IVP SCH ×2 (09:54→20:46)
[2021-01-16] MEDS: CEFTRIAXONE SODIUM 500 MG VIAL IV SCH (10:31)
[2021-01-16] MEDS: NIFEDIPINE ER 30 MG TAB PO SCH (10:37)
[2021-01-16] MEDS ORDERED: SODIUM CHLORIDE 0.9% 500ML 500 ML IV ONE (10:54)
[2021-01-16] MEDS ORDERED: EPOETIN ALFA-EPBX (ESRD) 10,000 UNIT/ML VIAL SQ SCH (12:15)
[2021-01-16] MEDS ORDERED: FUROSEMIDE 10 MG/ML 4ML VIAL IV SCH (12:15)
[2021-01-16 12:22] VITALS: BP 147/75
[2021-01-16] MEDS ORDERED: COMPOUND IV MISC 1 EACH IVSOLN MISC PRN (12:45)
[2021-01-16] MEDS: IRON SUCROSE COMPLEX 100 MG in SODIUM CHLORIDE 0.9% 50 ML IV SCH (14:36)
[2021-01-16 14:39] LABS: HEMATOCRIT 21.5 % (36-48)
[2021-01-16 16:00] VITALS: BP 155/75
[2021-01-16 19:00] VITALS: BP 177/82
[2021-01-16] MEDS: ATORVASTATIN CALCIUM 40 MG TABLET PO SCH (20:47)
[2021-01-16 23:38] VITALS: BP 194/88
[2021-01-16] MEDS: LABETALOL 20 MG/4 ML DISP.SYRIN IV SCH (23:49)
[2021-01-17] MEDS: ACETAMINOPHEN 325 MG TAB PO PRN (00:46)
[2021-01-17 01:27] VITALS: BP 174/82
[2021-01-17 03:42] VITALS: BP 180/82
[2021-01-17] MEDS: LABETALOL 20 MG/4 ML DISP.SYRIN IV SCH (04:37)
[2021-01-17 05:14] LABS: MEAN CORPUSCULAR HEMOGLOBIN 29.5 pg (27.0-33.0); MEAN CORPUSCULAR HGB CONC 32.5 g/dL (32.0-36.0); MEAN CORPUSCULAR VOLUME 90.9 fL (79-99); PLATELET COUNT (AUTO) 184 K/uL (130-400); WHITE BLOOD COUNT (AUTO) 8.3 K/uL (4.8-10.8)
[2021-01-17] MEDS: INSULIN HUMULIN R 100 UNIT/ML 3ML SQ SCH ×4 (05:25→20:50)
[2021-01-17 05:43] LABS: CREATININE 6.6 mg/dL (0.5-1.5); PHOSPHORUS 6.6 mg/dL (2.5-4.9)
[2021-01-17 05:47] LABS: BASOPHILS % (MANUAL) 2 % (0-2); EOSINOPHILS % (MANUAL) 2 % (1-6); LYMPHOCYTES % (MANUAL) 7 % (22-44); MAN.DIFF COMMENT-IMPRESSION MANUAL DIFFERENTIAL; MONOCYTES % (MANUAL) 2 % (2-9); SEGMENTED NEUTROPHILS % 87 % (40-70)
[2021-01-17 05:48] LABS: PLATELET MORPHOLOGY COMMENT ADEQUATE
[2021-01-17] MEDS ORDERED: FUROSEMIDE 10 MG/ML 4ML VIAL IV SCH ×2 (06:30→17:15)
[2021-01-17 08:00] VITALS: BP 190/70
[2021-01-17] MEDS: PANTOPRAZOLE 40 MG/VIAL IVP SCH ×2 (09:57→20:43)
[2021-01-17] MEDS: ASPIRIN 81MG TAB.CHEW PO SCH (09:58)
[2021-01-17] MEDS: CEFTRIAXONE SODIUM 500 MG VIAL IV SCH (09:58)
[2021-01-17] MEDS: IRON SUCROSE COMPLEX 100 MG in SODIUM CHLORIDE 0.9% 50 ML IV SCH (09:59)
[2021-01-17] MEDS: HYDRALAZINE HCL 25 MG TABLET PO SCH ×3 (09:59→20:43)
[2021-01-17] MEDS: NIFEDIPINE ER 30 MG TAB PO SCH (09:59)
[2021-01-17] MEDS: CARVEDILOL 12.5 MG TABLET PO SCH ×2 (10:03→17:13)
[2021-01-17] MEDS: FERROUS SULFATE 325 MG TABLET.DR PO SCH ×3 (10:11→20:44)
[2021-01-17 12:00] VITALS: BP 156/55
[2021-01-17] MEDS ORDERED: SODIUM CHLORIDE 0.9% 500ML 500 ML IV ONE (12:06)
[2021-01-17] MEDS ORDERED: DESMOPRESSIN ACETATE IJ SCH (15:30)
[2021-01-17] MEDS ORDERED: SODIUM CHLORIDE 0.9% IJ SCH (15:30)
[2021-01-17 17:24] VITALS: BP 143/71
[2021-01-17 20:00] VITALS: BP 144/67
[2021-01-17] MEDS: ESTROGENS,CONJUGATED 25 MG/VIAL IV SCH (20:43)
[2021-01-17] MEDS: ATORVASTATIN CALCIUM 40 MG TABLET PO SCH (20:44)
[2021-01-18] VITALS (9 sets, daily range): BP systolic 114–148; BP diastolic 49–75
[2021-01-18 05:06] LABS: MEAN CORPUSCULAR HEMOGLOBIN 29.9 pg (27.0-33.0); MEAN CORPUSCULAR HGB CONC 32.7 g/dL (32.0-36.0); MEAN CORPUSCULAR VOLUME 91.4 fL (79-99); PLATELET COUNT (AUTO) 177 K/uL (130-400); RED BLOOD CELL COUNT(AUTO) 2.21 MIL/uL (4.00-5.50); RED CELL DISTRIBUTION WIDTH 15.5 % (11.0-15.5); WHITE BLOOD COUNT (AUTO) 10.7 K/uL (4.8-10.8)
[2021-01-18 05:13] LABS: INR 1.05 (0.85-1.15); PROTHROMBIN TIME 11.4 SEC (9.6-11.6)
[2021-01-18 05:14] LABS: PARTIAL THROMBOPLASTIN TIME 27.6 SEC (26.3-35.5)
[2021-01-18 05:17] LABS: HEMATOCRIT 20.2 % (36-48)
[2021-01-18 05:31] LABS: CREATININE 6.3 mg/dL (0.5-1.5); PHOSPHORUS 6.3 mg/dL (2.5-4.9); POTASSIUM 4.1 mmol/L (3.5-5.1)
[2021-01-18 05:45] LABS: BAND NEUTROPHILS % (MANUAL) 1 % (0-2); BASOPHILS % (MANUAL) 1 % (0-2); EOSINOPHILS % (MANUAL) 1 % (1-6); LYMPHOCYTES % (MANUAL) 6 % (22-44); SEGMENTED NEUTROPHILS % 91 % (40-70)
[2021-01-18 05:46] LABS: MAN.DIFF COMMENT-IMPRESSION MANUAL DIFFERENTIAL
[2021-01-18 05:47] LABS: PLATELET MORPHOLOGY COMMENT SLIGHTLY DECREASED
[2021-01-18] MEDS: INSULIN HUMULIN R 100 UNIT/ML 3ML SQ SCH ×4 (06:20→20:27)
[2021-01-18] MEDS: ONDANSETRON HCL 4 MG/2 ML VIAL IV PRN ×2 (06:36→21:37)
[2021-01-18] MEDS: NIFEDIPINE ER 30 MG TAB PO SCH (09:52)
[2021-01-18] MEDS: FERROUS SULFATE 325 MG TABLET.DR PO SCH ×3 (09:54→20:25)
[2021-01-18] MEDS: ASPIRIN 81MG TAB.CHEW PO SCH (09:54)
[2021-01-18] MEDS: HYDRALAZINE HCL 25 MG TABLET PO SCH ×3 (09:54→20:25)
[2021-01-18] MEDS: ESTROGENS,CONJUGATED 25 MG/VIAL IV SCH (09:55)
[2021-01-18] MEDS: PANTOPRAZOLE 40 MG/VIAL IVP SCH ×2 (09:55→20:25)
[2021-01-18] MEDS: CARVEDILOL 12.5 MG TABLET PO SCH ×2 (11:58→16:12)
[2021-01-18] MEDS: IRON SUCROSE COMPLEX 100 MG in SODIUM CHLORIDE 0.9% 50 ML IV SCH (11:58)
[2021-01-18] MEDS: CEFTRIAXONE SODIUM 500 MG VIAL IV SCH (12:43)
[2021-01-18] MEDS: ATORVASTATIN CALCIUM 40 MG TABLET PO SCH (20:25)
[2021-01-19] VITALS (31 sets, daily range): BP systolic 112–161; BP diastolic 56–83
[2021-01-19 05:32] LABS: BASOPHILS % (AUTO) 0.5 % (0.0-5.0); HEMATOCRIT 22.9 % (36-48); LYMPHOCYTES % (AUTO) 5.7 % (21.0-51.0); MEAN CORPUSCULAR HEMOGLOBIN 30.2 pg (27.0-33.0); MEAN CORPUSCULAR HGB CONC 32.8 g/dL (32.0-36.0); MEAN CORPUSCULAR VOLUME 92.3 fL (79-99); MONOCYTES % (AUTO) 4.6 % (3.0-13.0); NEUTROPHILS % (AUTO) 85.8 % (40.0-77.0); PLATELET COUNT (AUTO) 175 K/uL (130-400); RED BLOOD CELL COUNT(AUTO) 2.48 MIL/uL (4.00-5.50); RED CELL DISTRIBUTION WIDTH 15.7 % (11.0-15.5); WHITE BLOOD COUNT (AUTO) 10.7 K/uL (4.8-10.8)
[2021-01-19] MEDS: INSULIN HUMULIN R 100 UNIT/ML 3ML SQ SCH ×4 (05:44→20:54)
[2021-01-19 05:56] LABS: ALBUMIN 2.9 g/dL (3.5-5.0); BILIRUBIN,TOTAL 0.5 mg/dL (0.2-1.0); CREATININE 6.6 mg/dL (0.5-1.5); MAGNESIUM 2.1 mg/dL (1.80-2.40); PHOSPHORUS 7.2 mg/dL (2.5-4.9); POTASSIUM 4.3 mmol/L (3.5-5.1); TOTAL PROTEIN, SERUM 6.9 g/dL (6.0-8.3)
[2021-01-19] MEDS ORDERED: SODIUM CHLORIDE 0.9% 500ML 500 ML IV ONE (06:27)
[2021-01-19] MEDS ORDERED: MIDAZOLAM HCL 1 MG/ML 2ML VIAL ONE (06:57)
[2021-01-19] MEDS ORDERED: KETAMINE 50MG/ML SYRINGE 50 MG/ML DISP.SYRIN IV ONE (07:03)
[2021-01-19] MEDS ORDERED: PROPOFOL 1000 MG/100 ML 100 ML IV ONE (07:07)
[2021-01-19] MEDS ORDERED: SUCCINYLCHOLINE CHLORIDE 20 MG/ML 10 ML VIAL ONE (07:25)
[2021-01-19] MEDS ORDERED: LIDOCAINE PF 2% 5ML ABBOJECT ONE (07:25)
[2021-01-19] MEDS ORDERED: ONDANSETRON HCL 4 MG/2 ML VIAL ONE (07:44)
[2021-01-19] MEDS ORDERED: ROCURONIUM 10MG/1ML SYR 10 MG/ML ML ONE (07:46)
[2021-01-19] MEDS ORDERED: ALBUTEROL INHALER 90MCG/INH IH ONE (07:49)
[2021-01-19] MEDS: FERROUS SULFATE 325 MG TABLET.DR PO SCH ×3 (11:30→20:53)
[2021-01-19] MEDS: ASPIRIN 81MG TAB.CHEW PO SCH (11:30)
[2021-01-19] MEDS: IRON SUCROSE COMPLEX 100 MG in SODIUM CHLORIDE 0.9% 50 ML IV SCH (11:30)
[2021-01-19] MEDS: HYDRALAZINE HCL 25 MG TABLET PO SCH ×3 (11:30→20:53)
[2021-01-19] MEDS: CARVEDILOL 12.5 MG TABLET PO SCH ×2 (11:30→17:34)
[2021-01-19] MEDS: NIFEDIPINE ER 30 MG TAB PO SCH (11:30)
[2021-01-19] MEDS: PANTOPRAZOLE 40 MG/VIAL IVP SCH ×2 (11:30→20:53)
[2021-01-19] MEDS: ACETAMINOPHEN-CODEINE 300/30MG TAB PO PRN (11:45)
[2021-01-19 17:35] LABS: HEMATOCRIT 21.4 % (36-48)
[2021-01-19] MEDS ORDERED: FUROSEMIDE 10 MG/ML 2ML VIAL IV SCH (19:00)
[2021-01-19] MEDS: CEFTRIAXONE SODIUM 500 MG VIAL IV SCH (19:00)
[2021-01-19] MEDS: ATORVASTATIN CALCIUM 40 MG TABLET PO SCH (20:53)
[2021-01-20] VITALS (24 sets, daily range): BP systolic 112–175; BP diastolic 56–80
[2021-01-20] MEDS ORDERED: FUROSEMIDE 10 MG/ML 2ML VIAL ONE (00:45)
[2021-01-20 03:21] LABS: BASOPHILS % (AUTO) 0.4 % (0.0-5.0); EOSINOPHILS % (AUTO) 2.2 % (0.0-8.0); HEMATOCRIT 23.9 % (36-48); LYMPHOCYTES % (AUTO) 5.1 % (21.0-51.0); MEAN CORPUSCULAR HEMOGLOBIN 30.1 pg (27.0-33.0); MEAN CORPUSCULAR HGB CONC 32.2 g/dL (32.0-36.0); MEAN CORPUSCULAR VOLUME 93.4 fL (79-99); MONOCYTES % (AUTO) 4.7 % (3.0-13.0); NEUTROPHILS % (AUTO) 87.3 % (40.0-77.0); NUCLEATED RED BLOOD CELLS 0.2 % (0.0-0.19); PLATELET COUNT (AUTO) 170 K/uL (130-400); RED BLOOD CELL COUNT(AUTO) 2.56 MIL/uL (4.00-5.50); RED CELL DISTRIBUTION WIDTH 16.5 % (11.0-15.5); WHITE BLOOD COUNT (AUTO) 9.4 K/uL (4.8-10.8)
[2021-01-20 03:34] LABS: ALBUMIN 2.9 g/dL (3.5-5.0); BILIRUBIN,TOTAL 0.5 mg/dL (0.2-1.0); CREATININE 7.1 mg/dL (0.5-1.5); INR 1.07 (0.85-1.15); POTASSIUM 4.9 mmol/L (3.5-5.1); PROTHROMBIN TIME 11.6 SEC (9.6-11.6); TOTAL PROTEIN, SERUM 6.7 g/dL (6.0-8.3)
[2021-01-20 03:35] LABS: PARTIAL THROMBOPLASTIN TIME 29.3 SEC (26.3-35.5)
[2021-01-20] MEDS: INSULIN HUMULIN R 100 UNIT/ML 3ML SQ SCH ×4 (06:13→21:00)
[2021-01-20] MEDS: IRON SUCROSE COMPLEX 100 MG in SODIUM CHLORIDE 0.9% 50 ML IV SCH (08:32)
[2021-01-20] MEDS: CARVEDILOL 12.5 MG TABLET PO SCH ×2 (08:32→17:00)
[2021-01-20] MEDS: PANTOPRAZOLE 40 MG/VIAL IVP SCH ×2 (08:32→21:16)
[2021-01-20] MEDS: HYDRALAZINE HCL 25 MG TABLET PO SCH ×3 (09:00→21:04)
[2021-01-20] MEDS: ASPIRIN 81MG TAB.CHEW PO SCH (09:00)
[2021-01-20] MEDS: NIFEDIPINE ER 30 MG TAB PO SCH (09:00)
[2021-01-20] MEDS: FERROUS SULFATE 325 MG TABLET.DR PO SCH ×3 (09:00→21:03)
[2021-01-20] MEDS: CEFTRIAXONE SODIUM 500 MG VIAL IV SCH (09:03)
[2021-01-20] MEDS: ACETAMINOPHEN-CODEINE 300/30MG TAB PO PRN (09:14)
[2021-01-20] MEDS ORDERED: LIDOCAINE HCL 1% MDV 50ML VIAL ONE (09:49)
[2021-01-20] MEDS: PERMETHRIN LOTION 1% 59ML BOTTLE TP SCH (13:18)
[2021-01-20 16:44] LABS: MEAN CORPUSCULAR HEMOGLOBIN 30.1 pg (27.0-33.0); MEAN CORPUSCULAR HGB CONC 32.3 g/dL (32.0-36.0); MEAN CORPUSCULAR VOLUME 93.2 fL (79-99); RED BLOOD CELL COUNT(AUTO) 2.36 MIL/uL (4.00-5.50); RED CELL DISTRIBUTION WIDTH 16.4 % (11.0-15.5); WHITE BLOOD COUNT (AUTO) 6.8 K/uL (4.8-10.8)
[2021-01-20 16:57] LABS: HEMOGLOBIN A1C 6.9 % (4.0-6.0)
[2021-01-20 17:00] LABS: ALBUMIN 2.7 g/dL (3.5-5.0); CREATININE 6.7 mg/dL (0.5-1.5)
[2021-01-20 17:29] LABS: % IRON SATURATION 26.9 % (22-44)
[2021-01-20] MEDS: HEPARIN SODIUM 5000UNIT/ML 1ML VIAL SQ PRN (18:14)
[2021-01-20] MEDS: ACETAMINOPHEN 325 MG TAB PO PRN (21:03)
[2021-01-20] MEDS: ATORVASTATIN CALCIUM 40 MG TABLET PO SCH (21:03)
[2021-01-20 21:36] LABS: HEMATOCRIT 23.7 % (36-48); MEAN CORPUSCULAR HEMOGLOBIN 30.2 pg (27.0-33.0); MEAN CORPUSCULAR HGB CONC 32.9 g/dL (32.0-36.0); MEAN CORPUSCULAR VOLUME 91.9 fL (79-99); RED BLOOD CELL COUNT(AUTO) 2.58 MIL/uL (4.00-5.50); RED CELL DISTRIBUTION WIDTH 16.5 % (11.0-15.5); WHITE BLOOD COUNT (AUTO) 8.1 K/uL (4.8-10.8)
[2021-01-21] VITALS (19 sets, daily range): BP systolic 138–183; BP diastolic 56–88
[2021-01-21] MEDS: ACETAMINOPHEN 325 MG TAB PO PRN (01:04)
[2021-01-21 04:58] LABS: HEMATOCRIT 23.6 % (36-48); MEAN CORPUSCULAR HEMOGLOBIN 29.8 pg (27.0-33.0); MEAN CORPUSCULAR HGB CONC 32.6 g/dL (32.0-36.0); MEAN CORPUSCULAR VOLUME 91.5 fL (79-99); PLATELET COUNT (AUTO) 153 K/uL (130-400); RED BLOOD CELL COUNT(AUTO) 2.58 MIL/uL (4.00-5.50); RED CELL DISTRIBUTION WIDTH 16.1 % (11.0-15.5); WHITE BLOOD COUNT (AUTO) 8.5 K/uL (4.8-10.8)
[2021-01-21 05:10] LABS: POTASSIUM 4.6 mmol/L (3.5-5.1)
[2021-01-21 05:19] LABS: BAND NEUTROPHILS % (MANUAL) 8 % (0-2); LYMPHOCYTES % (MANUAL) 22 % (22-44); MAN.DIFF COMMENT-IMPRESSION MANUAL DIFFERENTIAL; MONOCYTES % (MANUAL) 5 % (2-9); PLATELET MORPHOLOGY COMMENT ADEQUATE; SEGMENTED NEUTROPHILS % 65 % (40-70)
[2021-01-21] MEDS: INSULIN HUMULIN R 100 UNIT/ML 3ML SQ SCH ×4 (06:02→21:00)
[2021-01-21] MEDS: PERMETHRIN LOTION 1% 59ML BOTTLE TP SCH (09:00)
[2021-01-21] MEDS: ASPIRIN 81MG TAB.CHEW PO SCH (10:06)
[2021-01-21] MEDS: PANTOPRAZOLE 40 MG/VIAL IVP SCH ×2 (10:06→21:32)
[2021-01-21] MEDS: FERROUS SULFATE 325 MG TABLET.DR PO SCH ×3 (10:07→21:32)
[2021-01-21] MEDS: NIFEDIPINE ER 30 MG TAB PO SCH (10:07)
[2021-01-21] MEDS: HYDRALAZINE HCL 25 MG TABLET PO SCH ×3 (10:07→21:33)
[2021-01-21] MEDS: CARVEDILOL 12.5 MG TABLET PO SCH ×2 (10:08→18:41)
[2021-01-21] MEDS: IRON SUCROSE COMPLEX 100 MG in SODIUM CHLORIDE 0.9% 50 ML IV SCH (10:08)
[2021-01-21 11:15] LABS: HEMATOCRIT 23.9 % (36-48); MEAN CORPUSCULAR HEMOGLOBIN 29.9 pg (27.0-33.0); MEAN CORPUSCULAR HGB CONC 32.6 g/dL (32.0-36.0); MEAN CORPUSCULAR VOLUME 91.6 fL (79-99); RED BLOOD CELL COUNT(AUTO) 2.61 MIL/uL (4.00-5.50); WHITE BLOOD COUNT (AUTO) 8.7 K/uL (4.8-10.8)
[2021-01-21] MEDS ORDERED: EPOETIN ALFA-EPBX (ESRD) 10,000 UNIT/ML VIAL SQ PRN (14:00)
[2021-01-21] MEDS: HEPARIN SODIUM 5000UNIT/ML 1ML VIAL SQ PRN (14:27)
[2021-01-21] MEDS: CEFTRIAXONE SODIUM 500 MG VIAL IV SCH (15:50)
[2021-01-21] MEDS: SIMETHICONE 80 MG TAB.CHEW PO SCH ×3 (15:50→20:04)
[2021-01-21] MEDS: LABETALOL 20 MG/4 ML DISP.SYRIN IV SCH (15:52)
[2021-01-21 18:48] LABS: HEMATOCRIT 25.6 % (36-48); MEAN CORPUSCULAR HEMOGLOBIN 30.3 pg (27.0-33.0); MEAN CORPUSCULAR HGB CONC 33.6 g/dL (32.0-36.0); MEAN CORPUSCULAR VOLUME 90.1 fL (79-99); RED BLOOD CELL COUNT(AUTO) 2.84 MIL/uL (4.00-5.50); RED CELL DISTRIBUTION WIDTH 15.9 % (11.0-15.5); WHITE BLOOD COUNT (AUTO) 9.8 K/uL (4.8-10.8)
[2021-01-21] MEDS: DOCUSATE SODIUM 100 MG CAP PO SCH (21:32)
[2021-01-21] MEDS: ATORVASTATIN CALCIUM 40 MG TABLET PO SCH (21:32)
[2021-01-22 00:23] VITALS: BP 142/74
[2021-01-22 04:09] VITALS: BP 141/73
[2021-01-22 05:44] LABS: HEMATOCRIT 23.9 % (36-48); MEAN CORPUSCULAR HEMOGLOBIN 30.2 pg (27.0-33.0); MEAN CORPUSCULAR HGB CONC 33.1 g/dL (32.0-36.0); MEAN CORPUSCULAR VOLUME 91.2 fL (79-99); PLATELET COUNT (AUTO) 140 K/uL (130-400); RED BLOOD CELL COUNT(AUTO) 2.62 MIL/uL (4.00-5.50); RED CELL DISTRIBUTION WIDTH 15.9 % (11.0-15.5); WHITE BLOOD COUNT (AUTO) 9.4 K/uL (4.8-10.8)
[2021-01-22 05:47] LABS: CREATININE 4.8 mg/dL (0.5-1.5)
[2021-01-22 05:51] LABS: BAND NEUTROPHILS % (MANUAL) 1 % (0-2); EOSINOPHILS % (MANUAL) 4 % (1-6); LYMPHOCYTES % (MANUAL) 7 % (22-44); MAN.DIFF COMMENT-IMPRESSION MANUAL DIFFERENTIAL; MONOCYTES % (MANUAL) 4 % (2-9); SEGMENTED NEUTROPHILS % 84 % (40-70)
[2021-01-22 05:52] LABS: PLATELET MORPHOLOGY COMMENT ADEQUATE
[2021-01-22] MEDS: INSULIN HUMULIN R 100 UNIT/ML 3ML SQ SCH ×4 (06:34→20:41)
[2021-01-22 07:59] VITALS: BP 149/64
[2021-01-22] MEDS: CARVEDILOL 12.5 MG TABLET PO SCH ×3 (08:00→17:19)
[2021-01-22] MEDS: NIFEDIPINE ER 30 MG TAB PO SCH (09:00)
[2021-01-22] MEDS: HYDRALAZINE HCL 25 MG TABLET PO SCH ×3 (09:00→20:22)
[2021-01-22] MEDS: DOCUSATE SODIUM 100 MG CAP PO SCH ×2 (09:38→20:22)
[2021-01-22] MEDS: CEFTRIAXONE SODIUM 500 MG VIAL IV SCH (09:38)
[2021-01-22] MEDS: PANTOPRAZOLE 40 MG/VIAL IVP SCH ×2 (09:39→20:21)
[2021-01-22] MEDS: ASPIRIN 81MG TAB.CHEW PO SCH (09:40)
[2021-01-22] MEDS: SIMETHICONE 80 MG TAB.CHEW PO SCH ×4 (09:40→20:21)
[2021-01-22] MEDS: FERROUS SULFATE 325 MG TABLET.DR PO SCH ×3 (09:40→20:21)
[2021-01-22] MEDS: PERMETHRIN LOTION 1% 59ML BOTTLE TP SCH (09:41)
[2021-01-22] MEDS: IRON SUCROSE COMPLEX 100 MG in SODIUM CHLORIDE 0.9% 50 ML IV SCH (09:44)
[2021-01-22 11:29] VITALS: BP 158/78
[2021-01-22 14:12] LABS: HEPATITIS Bs ANTIGEN SCREEN P Negative (Negative)
[2021-01-22 16:15] VITALS: BP 221/88
[2021-01-22 20:00] VITALS: BP 127/70
[2021-01-22] MEDS: ATORVASTATIN CALCIUM 40 MG TABLET PO SCH (20:21)
[2021-01-23] VITALS (7 sets, daily range): BP systolic 139–224; BP diastolic 48–91
[2021-01-23] MEDS: LABETALOL 20 MG/4 ML DISP.SYRIN IV SCH ×2 (01:27→05:08)
[2021-01-23] MEDS: INSULIN HUMULIN R 100 UNIT/ML 3ML SQ SCH ×4 (06:39→21:37)
[2021-01-23] MEDS: HYDRALAZINE HCL 25 MG TABLET PO SCH ×3 (07:46→21:36)
[2021-01-23] MEDS: NIFEDIPINE ER 30 MG TAB PO SCH (07:46)
[2021-01-23] MEDS: CARVEDILOL 12.5 MG TABLET PO SCH ×2 (07:47→17:06)
[2021-01-23 07:50] LABS: HEMATOCRIT 26.7 % (36-48); MEAN CORPUSCULAR HEMOGLOBIN 28.8 pg (27.0-33.0); MEAN CORPUSCULAR HGB CONC 31.8 g/dL (32.0-36.0); MEAN CORPUSCULAR VOLUME 90.5 fL (79-99); RED BLOOD CELL COUNT(AUTO) 2.95 MIL/uL (4.00-5.50); RED CELL DISTRIBUTION WIDTH 15.9 % (11.0-15.5); WHITE BLOOD COUNT (AUTO) 8.5 K/uL (4.8-10.8)
[2021-01-23 08:03] LABS: CREATININE 3.8 mg/dL (0.5-1.5); MAGNESIUM 1.9 mg/dL (1.80-2.40); PHOSPHORUS 3.2 mg/dL (2.5-4.9); POTASSIUM 3.9 mmol/L (3.5-5.1)
[2021-01-23] MEDS ORDERED: MAGNESIUM 2GM PREMIX 50ML 50 ML IV PRN (09:00)
[2021-01-23] MEDS: CEFTRIAXONE SODIUM 500 MG VIAL IV SCH (09:19)
[2021-01-23] MEDS: PANTOPRAZOLE 40 MG/VIAL IVP SCH ×2 (09:19→21:36)
[2021-01-23] MEDS: ASPIRIN 81MG TAB.CHEW PO SCH (09:20)
[2021-01-23] MEDS: FERROUS SULFATE 325 MG TABLET.DR PO SCH ×3 (09:20→21:36)
[2021-01-23] MEDS: DOCUSATE SODIUM 100 MG CAP PO SCH ×2 (09:20→21:36)
[2021-01-23] MEDS: PERMETHRIN LOTION 1% 59ML BOTTLE TP SCH (09:20)
[2021-01-23] MEDS: SIMETHICONE 80 MG TAB.CHEW PO SCH ×4 (09:20→21:36)
[2021-01-23] MEDS: CLONIDINE 0.2 MG/ 24 HR PATCH TD SCH (11:21)
[2021-01-23] MEDS: IRON SUCROSE COMPLEX 100 MG in SODIUM CHLORIDE 0.9% 50 ML IV SCH (12:55)
[2021-01-23] MEDS: ATORVASTATIN CALCIUM 40 MG TABLET PO SCH (21:36)
[2021-01-24] VITALS (7 sets, daily range): BP systolic 116–173; BP diastolic 58–78
[2021-01-24 05:51] LABS: HEMATOCRIT 27.1 % (36-48); MEAN CORPUSCULAR HEMOGLOBIN 30.4 pg (27.0-33.0); MEAN CORPUSCULAR HGB CONC 32.8 g/dL (32.0-36.0); MEAN CORPUSCULAR VOLUME 92.5 fL (79-99); RED BLOOD CELL COUNT(AUTO) 2.93 MIL/uL (4.00-5.50); RED CELL DISTRIBUTION WIDTH 15.9 % (11.0-15.5); WHITE BLOOD COUNT (AUTO) 8.4 K/uL (4.8-10.8)
[2021-01-24 05:59] LABS: CREATININE 3.5 mg/dL (0.5-1.5); POTASSIUM 3.6 mmol/L (3.5-5.1)
[2021-01-24] MEDS: INSULIN HUMULIN R 100 UNIT/ML 3ML SQ SCH ×4 (06:11→21:00)
[2021-01-24] MEDS: CARVEDILOL 12.5 MG TABLET PO SCH ×2 (08:19→17:03)
[2021-01-24] MEDS: PERMETHRIN LOTION 1% 59ML BOTTLE TP SCH ×2 (09:00→15:41)
[2021-01-24] MEDS: CLONIDINE 0.2 MG/ 24 HR PATCH TD SCH (09:26)
[2021-01-24] MEDS: SIMETHICONE 80 MG TAB.CHEW PO SCH ×4 (09:26→21:01)
[2021-01-24] MEDS: PANTOPRAZOLE 40 MG/VIAL IVP SCH ×2 (09:26→21:00)
[2021-01-24] MEDS: CEFTRIAXONE SODIUM 500 MG VIAL IV SCH (09:26)
[2021-01-24] MEDS: HYDRALAZINE HCL 25 MG TABLET PO SCH ×3 (09:27→21:00)
[2021-01-24] MEDS: FERROUS SULFATE 325 MG TABLET.DR PO SCH ×3 (09:27→21:01)
[2021-01-24] MEDS: NIFEDIPINE ER 30 MG TAB PO SCH (09:27)
[2021-01-24] MEDS: ASPIRIN 81MG TAB.CHEW PO SCH (09:27)
[2021-01-24] MEDS: DOCUSATE SODIUM 100 MG CAP PO SCH ×2 (09:28→21:01)
[2021-01-24] MEDS: IRON SUCROSE COMPLEX 100 MG in SODIUM CHLORIDE 0.9% 50 ML IV SCH (09:28)
[2021-01-24] MEDS: ONDANSETRON HCL 4 MG/2 ML VIAL IV PRN (17:04)
[2021-01-24] MEDS: ATORVASTATIN CALCIUM 40 MG TABLET PO SCH (21:01)
[2021-01-25] VITALS (18 sets, daily range): BP systolic 137–175; BP diastolic 69–83
[2021-01-25 05:36] LABS: HEMATOCRIT 29.8 % (36-48); MEAN CORPUSCULAR HGB CONC 31.5 g/dL (32.0-36.0); RED BLOOD CELL COUNT(AUTO) 3.24 MIL/uL (4.00-5.50); RED CELL DISTRIBUTION WIDTH 15.8 % (11.0-15.5); WHITE BLOOD COUNT (AUTO) 9.4 K/uL (4.8-10.8)
[2021-01-25] MEDS: INSULIN HUMULIN R 100 UNIT/ML 3ML SQ SCH ×4 (05:41→20:53)
[2021-01-25 05:55] LABS: CREATININE 4.9 mg/dL (0.5-1.5); POTASSIUM 3.9 mmol/L (3.5-5.1)
[2021-01-25] MEDS ORDERED: LIDOCAINE HCL 1% MDV 50ML VIAL ONE (07:00)
[2021-01-25] MEDS ORDERED: CEFAZOLIN SODIUM 1 GM VIAL IVP PRN (07:30)
[2021-01-25] MEDS: CEFTRIAXONE SODIUM 500 MG VIAL IV SCH (09:16)
[2021-01-25] MEDS: HYDRALAZINE HCL 25 MG TABLET PO SCH ×3 (09:16→20:51)
[2021-01-25] MEDS: CLONIDINE 0.2 MG/ 24 HR PATCH TD SCH (09:16)
[2021-01-25] MEDS: PANTOPRAZOLE 40 MG/VIAL IVP SCH ×2 (09:17→20:51)
[2021-01-25] MEDS: DOCUSATE SODIUM 100 MG CAP PO SCH ×2 (09:17→20:51)
[2021-01-25] MEDS: FERROUS SULFATE 325 MG TABLET.DR PO SCH ×3 (09:17→20:51)
[2021-01-25] MEDS: NIFEDIPINE ER 30 MG TAB PO SCH (09:17)
[2021-01-25] MEDS: SIMETHICONE 80 MG TAB.CHEW PO SCH ×4 (09:17→20:51)
[2021-01-25] MEDS: ASPIRIN 81MG TAB.CHEW PO SCH (09:18)
[2021-01-25] MEDS: CARVEDILOL 12.5 MG TABLET PO SCH ×2 (09:27→16:56)
[2021-01-25] MEDS: IRON SUCROSE COMPLEX 100 MG in SODIUM CHLORIDE 0.9% 50 ML IV SCH (09:27)
[2021-01-25] MEDS ORDERED: PERMETHRIN LOTION 1% 59ML BOTTLE TP ONE (19:30)
[2021-01-25] MEDS: HEPARIN SODIUM 5000UNIT/ML 1ML VIAL SQ PRN (19:32)
[2021-01-25] MEDS: ATORVASTATIN CALCIUM 40 MG TABLET PO SCH (20:51)
[2021-01-26 00:58] VITALS: BP 153/72
[2021-01-26 04:00] VITALS: BP 140/60
[2021-01-26 05:09] LABS: HEMATOCRIT 32.1 % (36-48); MEAN CORPUSCULAR HEMOGLOBIN 29.2 pg (27.0-33.0); MEAN CORPUSCULAR HGB CONC 32.4 g/dL (32.0-36.0); MEAN CORPUSCULAR VOLUME 90.2 fL (79-99); PLATELET COUNT (AUTO) 190 K/uL (130-400); RED BLOOD CELL COUNT(AUTO) 3.56 MIL/uL (4.00-5.50); RED CELL DISTRIBUTION WIDTH 15.3 % (11.0-15.5); WHITE BLOOD COUNT (AUTO) 9.7 K/uL (4.8-10.8)
[2021-01-26 05:27] LABS: CREATININE 4.1 mg/dL (0.5-1.5); PHOSPHORUS 3.5 mg/dL (2.5-4.9); POTASSIUM 3.9 mmol/L (3.5-5.1)
[2021-01-26] MEDS: INSULIN HUMULIN R 100 UNIT/ML 3ML SQ SCH ×2 (05:32→11:30)
[2021-01-26 05:40] LABS: BASOPHILS % (MANUAL) 1 % (0-2); EOSINOPHILS % (MANUAL) 2 % (1-6); LYMPHOCYTES % (MANUAL) 6 % (22-44); MAN.DIFF COMMENT-IMPRESSION MANUAL DIFFERENTIAL; MONOCYTES % (MANUAL) 2 % (2-9); SEGMENTED NEUTROPHILS % 89 % (40-70)
[2021-01-26 05:41] LABS: PLATELET MORPHOLOGY COMMENT ADEQUATE
[2021-01-26 07:30] VITALS: BP 133/76
[2021-01-26] MEDS: CEFTRIAXONE SODIUM 500 MG VIAL IV SCH (08:13)
[2021-01-26] MEDS: PANTOPRAZOLE 40 MG/VIAL IVP SCH (08:13)
[2021-01-26] MEDS: IRON SUCROSE COMPLEX 100 MG in SODIUM CHLORIDE 0.9% 50 ML IV SCH (08:31)
[2021-01-26] MEDS: CARVEDILOL 12.5 MG TABLET PO SCH (08:45)
[2021-01-26] MEDS: DOCUSATE SODIUM 100 MG CAP PO SCH (08:45)
[2021-01-26] MEDS: ASPIRIN 81MG TAB.CHEW PO SCH (08:46)
[2021-01-26] MEDS: FERROUS SULFATE 325 MG TABLET.DR PO SCH ×2 (08:46→14:29)
[2021-01-26] MEDS: SIMETHICONE 80 MG TAB.CHEW PO SCH ×2 (08:46→14:28)
[2021-01-26] MEDS: NIFEDIPINE ER 30 MG TAB PO SCH (08:46)
[2021-01-26] MEDS: HYDRALAZINE HCL 25 MG TABLET PO SCH ×2 (08:51→14:28)
[2021-01-26 11:00] VITALS: BP 147/79
[2021-01-26] MEDS ORDERED: NYST30O TP (11:18)
[2021-01-26] MEDS ORDERED: PERM60CR4 TP (11:18)
[2021-01-26] MEDS: CLONIDINE 0.2 MG/ 24 HR PATCH TD SCH (14:30)
[2021-02-01] MEDS ORDERED: PERMETHRIN LOTION 1% 59ML BOTTLE TP SCH (09:15)
== END 2021-01-26 17:45 | disposition home or self-care (01) | DRG 517 ==
LOC: EDH 15:53 → OBSVTOIN 15:54 → EDHIP 15:54 → 3BH 22:06
PROVIDERS: ADMIT Internal Medicine Pulmonary Disease; ATTEND Internal Medicine Pulmonary Disease
PROC: 30233N1 Transfusion of Nonautologous Red Blood Cells into Peripheral Vein, Percutaneous Approach (ICD-10-PCS; 2021-01-15)
PROC: 0UJD8ZZ Inspection of Uterus and Cervix, Via Natural or Artificial Opening Endoscopic (ICD-10-PCS; 2021-01-19)
PROC: 5A1D70Z Performance of Urinary Filtration, Intermittent, Less than 6 Hours Per Day (ICD-10-PCS; principal; 2021-01-19 07:05)
PROC: 0UDB8ZZ Extraction of Endometrium, Via Natural or Artificial Opening Endoscopic (ICD-10-PCS; 2021-01-19 07:05)
PROC: 5A1D70Z Performance of Urinary Filtration, Intermittent, Less than 6 Hours Per Day (ICD-10-PCS; 2021-01-20)
PROC: 0JH63XZ Insertion of Tunneled Vascular Access Device into Chest Subcutaneous Tissue and Fascia, Percutaneous Approach (ICD-10-PCS; 2021-01-20)
PROC: 02H633Z Insertion of Infusion Device into Right Atrium, Percutaneous Approach (ICD-10-PCS; 2021-01-20)
PROC: B5181ZA Fluoroscopy of Superior Vena Cava using Low Osmolar Contrast, Guidance (ICD-10-PCS; 2021-01-20)
PROC: B548ZZA Ultrasonography of Superior Vena Cava, Guidance (ICD-10-PCS; 2021-01-20)
PROC: 5A1D70Z Performance of Urinary Filtration, Intermittent, Less than 6 Hours Per Day (ICD-10-PCS; 2021-01-22)
PROC: 5A1D70Z Performance of Urinary Filtration, Intermittent, Less than 6 Hours Per Day (ICD-10-PCS; 2021-01-23)
PROC: 5A1D70Z Performance of Urinary Filtration, Intermittent, Less than 6 Hours Per Day (ICD-10-PCS; 2021-01-25)
DX: D25.9 Leiomyoma of uterus, unspecified (principal); N17.9 Acute kidney failure, unspecified; I13.2 Hypertensive heart and chronic kidney disease with heart failure and with stage 5 chronic kidney disease, or end stage renal disease; E11.22 Type 2 diabetes mellitus with diabetic chronic kidney disease; E11.319 Type 2 diabetes mellitus with unspecified diabetic retinopathy without macular edema; I50.9 Heart failure, unspecified; D64.9 Anemia, unspecified; B37.9 Candidiasis, unspecified; N92.0 Excessive and frequent menstruation with regular cycle; E11.65 Type 2 diabetes mellitus with hyperglycemia; B85.2 Pediculosis, unspecified; N39.0 Urinary tract infection, site not specified; N18.5 Chronic kidney disease, stage 5; E66.9 Obesity, unspecified; K59.00 Constipation, unspecified; E78.5 Hyperlipidemia, unspecified; E78.00 Pure hypercholesterolemia, unspecified; H54.61 Unqualified visual loss, right eye, normal vision left eye; N83.209 Unspecified ovarian cyst, unspecified side; R79.1 Abnormal coagulation profile; R93.89 Abnormal findings on diagnostic imaging of other specified body structures; Z68.34 Body mass index [BMI] 34.0-34.9, adult; Z78.9 Other specified health status; Z79.84 Long term (current) use of oral hypoglycemic drugs; Z79.899 Other long term (current) drug therapy; Z83.3 Family history of diabetes mellitus; Z82.3 Family history of stroke; Z82.49 Family history of ischemic heart disease and other diseases of the circulatory system; Z20.822 Contact with and (suspected) exposure to COVID-19
CPT/HCPCS: 36415; 36430; 36558; 71045; 76856; 77001; 80048; 80053; 80061; 81001; 82040; 82550; 82565; 82728; 82948; 83036; 83540; 83550; 83735; 83970; 84100; 84145; 84484; 84520; 85014; 85018; 85025; 85027; 85610; 85730; 86701; 86704; 86706; 86850; 86900; 86901; 86923; 87088; 87340; 87390; 87426; 90935; 93005; 93930; 93970; A4351; A4355; C1750; C9113; G0378; J0330; J0696; J1410; J1644; J1756; J1815; J1940; J2001; J2250; J2405; J2597; J2704; J3475; J3490; J7030; J7040; P9016; U0003

== ENCOUNTER → 2021-11-11 | Outpatient (CLI) | payer MEDICARE ==
[~2021-11-11] MED LIST changes: +ASCO100031 PO; +ASPI-1005 PO; +CARV12.511 PO; -CEPH500C2 PO; +CHOL100046 PO; +FERR-72 PO; -FERS325 PO; +FOLI1TAB85 PO; +HYDR-4154 PO; +NIFE60TA81 PO; +NYST30O TP; +PERM60CR4 TP
== END | disposition home or self-care (01) ==
LOC: RAH 09:51
PROVIDERS: ATTEND Family Medicine
DX: R13.10 Dysphagia, unspecified (principal); R47.02 Dysphasia; R63.30 Feeding difficulties, unspecified
CPT/HCPCS: 74230; 92611

== ENCOUNTER → 2021-11-22 | Outpatient (CLI) | payer MEDICARE | END | disposition home or self-care (01) | LOC: RAH 12:52 | PROVIDERS: ATTEND Family Medicine | DX: R92.2 Inconclusive mammogram (principal); I70.8 Atherosclerosis of other arteries | CPT/HCPCS: 76641; 77066 ==

== ENCOUNTER → 2021-12-14 | Outpatient (CLI) | payer MEDICARE | END | disposition home or self-care (01) | LOC: SHCH 13:11 | PROVIDERS: ATTEND Internal Medicine Cardiovascular Disease | DX: I08.2 Rheumatic disorders of both aortic and tricuspid valves (principal); I11.9 Hypertensive heart disease without heart failure | CPT/HCPCS: 93306 ==

== ENCOUNTER → 2023-10-24 | Outpatient (CLI) | payer MEDICARE ==
[~2023-10-24] MED LIST changes: -HYDR-4154 PO; +HYDR50TA37 PO; +NIFE-79 PO; -NIFE60TA81 PO
[2023-10-24 12:11] LABS: HEMATOCRIT 30.8 % (36-48); MEAN CORPUSCULAR HEMOGLOBIN 33.9 pg (27.0-33.0); MEAN CORPUSCULAR HGB CONC 32.1 g/dL (32.0-36.0); MEAN CORPUSCULAR VOLUME 105.5 fL (79-99); PLATELET COUNT (AUTO) 212 K/uL (130-400); RED BLOOD CELL COUNT(AUTO) 2.92 MIL/uL (4.00-5.50); RED CELL DISTRIBUTION WIDTH 14.3 % (11.0-15.5)
[2023-10-24 12:51] LABS: ALBUMIN 3.1 g/dL (3.5-5.0); BILIRUBIN,TOTAL 0.4 mg/dL (0.2-1.0); CREATININE 7.6 mg/dL (0.5-1.5); MAGNESIUM 2.2 mg/dL (1.80-2.40); POTASSIUM 4.1 mmol/L (3.5-5.1); THYROID STIMULATING HORMONE 1.85 uIU/mL (0.36-3.74); TOTAL PROTEIN, SERUM 7.2 g/dL (6.0-8.3)
== END | disposition home or self-care (01) ==
LOC: LAB 09:10
PROVIDERS: ATTEND Physician Assistant
DX: I10 Essential (primary) hypertension (principal); E78.5 Hyperlipidemia, unspecified
CPT/HCPCS: 36415; 80053; 83735; 84443; 85027